=== PATIENT | female | born 1995 | race Caucasian/White ===

== ENCOUNTER 2022-01-31 14:11 | Emergency (ER) | payer SELFPAY ==
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
[2022-01-31 14:26] VITALS: BP 126/77; O2SAT 97
[2022-01-31 14:52] VITALS: PULSE 72
== END 2022-01-31 14:48 | disposition home or self-care (01) ==
LOC: ED 14:11
DX: Z02.89 Encounter for other administrative examinations (principal)
CPT/HCPCS: 99283